=== PATIENT | female | born 2000 | race Caucasian/White ===

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

== ENCOUNTER → 2021-03-01 | Outpatient (CLI) | payer BC ==
--- NOTE | 2021-03-01 13:35 | US ---
EXAMINATION TYPE: Transabdominal DATE OF EXAM: 03/01/2021 9:25 AM COMPARISON: NONE CLINICAL HISTORY: Z34.9 Encounter for supervision of normal pregnanc. Patient declined transvaginal u ltrasound EXAM PERFORMED: Transabdominal (TA) EXAM MEASUREMENTS: GESTATIONAL AGE / DATING Physician Established: Not yet established Dates by LMP: LMP unknown Dates by Current Scan for: (11 weeks/1 days) EDC: 09/19/2021 MATERNAL ANATOMY Uterus: 10.9 x 8.6 x 7.8 cm Right Ovary: 4.1 x 1.6 x 1.5 cm Left Ovary: Not visualized Post CDS / Adnexa: wnl Presence of free fluid: No Presence of corpus luteal cyst: No Presence of subchorionic bleed: No GESTATION / SURVEY CRL: 4.1 cm (11 weeks/1 days) Heart Rate: 153 bpm Rhythm: Normal IUP: Viable IUP Date of LMP: Unknown Beta HcG (if available): Not available at this time Viable IUP with an AMARA of 09/19/2021 by this exam. Echogenic area measuring 0.8 cm visualized within g estational sac of unknown etiology. Patient denied transvaginal ultrasound IMPRESSION: Live IUP with an AMARA of 09/19/2021 by this exam. Echogenic focus measuring 0.8 cm visualized within ge stational sac of unknown etiology.
== END | disposition home or self-care (01) ==
LOC: RADUSWWP 09:05
PROVIDERS: ATTEND Obstetrics & Gynecology
DX: Z34.91 Encounter for supervision of normal pregnancy, unspecified, first trimester (principal); Z3A.11 11 weeks gestation of pregnancy
CPT/HCPCS: 76801

== ENCOUNTER 2021-09-02 22:57 | Outpatient (CLI) | payer BC, OTHER ==
[2021-09-02] MEDS ORDERED: ACETAMINOPHEN TAB 325 MG TAB PO STA (23:31)
[2021-09-02 23:57] VITALS: BP 105/68; PULSE 93; RESP 16; TEMP 98.7
--- NOTE | 2021-09-17 11:02 | P.MSEPDOC ---
Presenting Problems - Arrival Data Date of Arrival on Unit: 09/02/21 Time of Arrival on Unit: 22:57 Mode of Transport: Ambulatory - Complaint OB-Reason for Admission/Chief Complaint: Pain Comment: lower pelvic pain, hip and back pain 8/10, and headache for the past 24 hours Medical History - Information : 1 Para: 0 Term: 0 : 0 Abortions: Spontaneous or Elective: 0 Number of Living Children: 0 - Gestational Age Gestational Age by AMARA (wks/days): 37 Weeks and 4 Days - History Complications: GBS+, Smoker Comment: smokes THC a couple days ago Review of Systems - Review of Systems Constitutional: No problems Breast: No problems ENT: No problems Cardiovascular: No problems Respiratory: No problems Gastrointestinal: No problems Genitourinary: No problems Musculoskeletal: No problems Neurological: No problems Skin: No problems Vital Signs - Temperature Temperature: 98.7 F Temperature Source: Oral - Pulse Pulse Oximetery Pulse Rate: 93 Pulse Assessment Method: Automatic Cuff - Respirations Respiratory Rate: 16 Oxygen Delivery Method: Room Air - Blood Pressure Right Arm Blood Pressure: 105/68 Blood Pressure Mean: 80 Blood Pressure Source: Automatic Cuff Medical Screen Scoring - Cervical Exam Dilation (cm): 0 Membranes: Intact - Assessment - Baby A Baseline FHR: 135 Heart Rate - NICHD Category: Category I (Normal) NST: Reactive Physician Notification - Physician Notified Physician Notified Date: 09/02/21 Physician Notified Time: 23:22 Physician: Alcira Roque New Order Received: Yes - Notification Comment Comment: orders to keep pt. for 1 hour and if mely recheck cervix, if no contractions within the hour pt. can be discharged home, pt. left AMA at 2235, Dr. Roque called and notifed. Maternal Triage Index - Maternal Triage Index Presenting for scheduled procedure w/no complaint: No - Stat/Priority 1 Stat Priority 1: No - Urgent/Priority 2 Urgent Priority 2: No - Prompt/Priority 3 Prompt Priority 3: Yes Criteria Met for Priority 3: pt. 37/4, c/o headache for the last 24 hours, lower pelvic pain, hip and back pain 8/10. fingertip, thick and high, no contractions at this time Disposition - Disposition OB Disposition: Discharge to home Discharge Date: 09/02/21 Discharge Time: 22:35 I agree with the RN Medical Screening Exam: Yes Case reviewed; plan agreed upon as documented in EMR&OBIX.: Yes Diagnosis: head ache, pelvic pain
== END 2021-09-02 23:22 | disposition home or self-care (01) ==
LOC: FBPOP 22:57
PROVIDERS: ATTEND Obstetrics & Gynecology
DX: O26.893 Other specified pregnancy related conditions, third trimester (principal); R51.9 Headache, unspecified; R10.2 Pelvic and perineal pain; Z3A.37 37 weeks gestation of pregnancy
CPT/HCPCS: 59025; 99213

== ENCOUNTER 2021-09-15 06:15 | Inpatient (IN) | payer BC, OTHER ==
[2021-09-15] MEDS ORDERED: METHYLERGONOVINE 0.2 MG/ML 1 ML AMP IM PRN (06:27)
[2021-09-15] MEDS ORDERED: TERBUTALINE 1 MG/ML VIAL SQ PRN (06:27)
[2021-09-15] MEDS ORDERED: LIDOCAINE 1% (PF) 10 MG/ML (30 ML SDV) SQ PRN (06:27)
[2021-09-15] MEDS ORDERED: CARBOPROST TROMETHAMINE 250 MCG/ML 1 ML AMP IM PRN (06:27)
[2021-09-15] MEDS ORDERED: OXYTOCIN 10 UNIT/ML 1 ML VIAL IM PRN (06:27)
[2021-09-15] MEDS ORDERED: OXYTOCIN 30 UNITS/500 ML NS 30 UNIT in SALINE 1 500ML.BAG IV SCH (06:30)
[2021-09-15] MEDS ORDERED: PENICILLIN G POTASSIUM 5,000,000 UNIT in DEXTROSE 5% IN WATER 100 ML IVPB STA ×2 (06:47)
[2021-09-15] MEDS: LACTATED RINGERS 1,000 ML IV SCH ×4 (06:56→20:39)
[2021-09-15 07:08] LABS: Basophils % (A) 0 %; Eosinophils # (A) 0.2 k/uL (0-0.7); Eosinophils % (A) 2 %; HCT 38.3 % (34.0-46.0); Lymphocytes # (A) 1.3 k/uL (1.0-4.8); Lymphocytes % (A) 15 %; MCH 31.8 pg (25.0-35.0); MCV 93.6 fL (80.0-100.0); Mean Platelet Volume 7.4; Monocytes # (A) 0.6 k/uL (0-1.0); Monocytes % (A) 7 %; Neutrophils % (A) 73 %; Platelet Count 250 k/uL (150-450); RBC 4.09 m/uL (3.80-5.40); RDW 14.1 % (11.5-15.5); WBC 8.2 k/uL (4.0-11.0)
--- NOTE | 2021-09-15 08:08 | P.HPOB ---
History of Present Illness H&P Date: 09/15/21 Chief Complaint: Here for induction of labor for small for gestational age f etus. This is a 20-year-old white female 1 para 0 EDC 09/19/2021 at 39-2/7 weeks' gestation who presents today for induction with small for gestational age fetus noted sonographically. Fetus is been active throughout the , weekly nonstress testing has been reassuring. She denies fluid leakage or vaginal bleeding this morning. 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 Past surgical history is negative. Social history significant for single teen , father of the baby present and involved. She has a history of marijuana use as well as beeping, quit both with . Current medications vitamins daily, Valtrex 500 mg daily, baby aspirin daily. ALLERGIES none known. history significant for positive group B strep cultures, blood type A-, rubella status nonimmune. VDRL testing, hepatitis B surface antigen, HIV testing, urine culture all negative. Initial urine drug screen was positive for marijuana, repeat was negative. One-hour Glucola 122. On exam patient is 5 foot 8 inches, 164 pounds, blood pressure 118/77, vital signs are stable and she is afebrile. The general physical exam is within normal limits. Cervix is 1 cm dilated, 60% effaced, -2 station, soft, anterior, vertex. Artificial amniorrhexis reveals clear fluid. heart tones are consistent with reactive NST. Impression: 39-2/7 weeks intrauterine , all signs reassuring, positive group B strep cultures, small for gestational age fetus noted sonographically. No HSV lesions or prodrome today. Plan oxytocin per hospital protocol. Penicillin G per hospital protocol. Close maternal and surveillance. Analgesic options reviewed with the patient. Anticipate normal spontaneous vaginal delivery. Review of Systems Constitutional: Reports as per HPI Past Medical History Past Medical History: No Reported History History of Any Multi-Drug Resistant Organisms: None Reported Past Surgical History: No Surgical Hx Reported Past Psychological History: No Psychological Hx Reported Smoking Status: Vaper Past Alcohol Use History: None Reported Past Drug Use History: None Reported Additional Drug Use History / Comment(s): THC use during pregnacy used last month Medications and Allergies Home Medications Medication Instructions Recorded Confirmed Type Pnv No.95/Ferrous Fum/Folic AC 1 tab PO DAILY 09/02/21 09/15/21 History [ Multivitamin Tablet] valACYclovir HCL [Valtrex] 1 tab PO DAILY 09/02/21 09/15/21 History Allergies Allergy/AdvReac Type Severity Reaction Status Date / Time No Known Allergies Allergy Verified 07/30/20 16:58 Exam Vital Signs Temp Pulse Resp BP Pulse Ox 09/15/21 06:26 96.4 F L 107 H 16 118/77 99 Intake and Output 09/14/21 09/15/21 09/15/21 22:59 06:59 14:59 Other: Weight 74.389 kg See dictation under HPI please Results Result Diagrams: 09/15/21 06:45 Assessment and Plan Assessment: 39-2/7 weeks intrauterine , small for gestational age fetus noted sonographically. All signs otherwise reassuring. Plan: Oxytocin per hospital protocol. Penicillin G per hospital protocol. Close maternal and surveillance. Anticipate normal spontaneous vaginal delivery. Time with Patient: Less than 30
[2021-09-15] MEDS ORDERED: ROPIVACAINE 5MG/ML 20ML VIAL ONE (11:03)
[2021-09-15] MEDS ORDERED: fentaNYL (PF) 50 MCG/ML 5 ML AMP ONE (11:03)
[2021-09-15] MEDS ORDERED: SODIUM CHLORIDE 0.9% 100 ML BAG ONE (11:03)
[2021-09-15] MEDS: PENICILLIN G POTASSIUM 2,500,000 UNIT in DEXTROSE 5% IN WATER 100 ML IVPB SCH ×4 (11:34→17:12)
[2021-09-15] MEDS ORDERED: OXYTOCIN 30 UNITS/500 ML NS BAG IV ONE (15:06)
[2021-09-15] MEDS ORDERED: ONDANSETRON 4 MG/2 ML VIAL ONE (15:06)
[2021-09-15] MEDS ORDERED: KETOROLAC 15 MG/ML 1 ML VIAL ONE (15:06)
[2021-09-15] MEDS ORDERED: MORPHINE SULFATE (PF) 0.3 MG/0.3 ML SYR ONE (15:06)
[2021-09-15] MEDS ORDERED: ONDANSETRON 4 MG/2 ML VIAL IVP PRN ×2 (15:40→15:54)
[2021-09-15] MEDS ORDERED: diphenhydrAMINE 50 MG/ML 1 ML VIAL IVP PRN ×3 (15:40→15:54)
[2021-09-15] MEDS ORDERED: NALOXONE 0.4 MG/ML 1 ML VIAL IV PRN ×2 (15:40→15:54)
[2021-09-15] MEDS ORDERED: MORPHINE SULFATE 2 MG/ML SYRINGE IVP PRN (15:40)
[2021-09-15] MEDS ORDERED: NALBUPHINE 10 MG/ML (1 ML AMP) IV PRN (15:40)
[2021-09-15] MEDS ORDERED: SIMETHICONE 80 MG CHEWABLE PO PRN (15:54)
[2021-09-15] MEDS ORDERED: METOCLOPRAMIDE 5 MG/ML 2 ML VIAL IVP PRN (15:54)
[2021-09-15] MEDS ORDERED: diphenhydrAMINE 50 MG CAP PO PRN (15:54)
[2021-09-15] MEDS ORDERED: ZOLPIDEM 5 MG TAB PO PRN (15:54)
[2021-09-15] MEDS ORDERED: MEASLES-MUMPS-RUBELLA VACC/PF 12,500 UNIT/0.5 ML VIAL SQ ONE (15:54)
[2021-09-15] MEDS ORDERED: diphenhydrAMINE 25 MG CAP PO PRN (15:54)
--- NOTE | 2021-09-15 15:54 | P.OP ---
Date of Procedure: 09/15/21 Preoperative Diagnosis: 39-2/7 weeks intrauterine , asymmetric SGA, compound presentation 8 cm dilatation with hand presenting at 3:00. Postoperative Diagnosis: Same, liveborn male infant, normal-appearing placenta Procedure(s) Performed: Primary low transverse section Anesthesia: epidural Surgeon: Manju Weems Animal Chiropractor #1: rTav Hawk Estimated Blood Loss (ml): 400 IV fluids (ml): 500 Urine output (ml): 250 Pathology: other (Placenta) Condition: stable Disposition: PACU Operative Findings: Liveborn male , Apgars 8 and 9 at one and 5 minutes. Normal-appearing tubes and ovaries bilaterally. 6 lbs. 6 oz. or 2890 g weight. Description of Procedure: On vaginal examination, the hand was noted at 3:00, full hand to the wrist, with fingers. Decision was made to proceed with primary low transverse section for compound presentation. The epidural was "topped off". Penicillin G had been given 2 doses, Ancef 2 g also given. Patient is brought back to the operative suite. She's placed in the dorsal supine position after Madrid catheter is placed, vaginal prep is done. The appropriate timeout is performed to assure proper patient and procedural identification. The abdomen is prepped and draped in the usual sterile fashion. The analgesia is checked and noted to be adequate. A low transverse skin incision is made in this is carried down through the subcutaneous tissue which is approximately 2 cm deep. Fascia is isolated, scored, extended bilaterally with curved Linton scissors. Peritoneum is next identified and incised, there is no bowel or bladder involvement. The bladder blade is placed over the dome of the bladder and at all times the bladder is Well from the operative field to avoid bladder and/or ureteral injury. A low transverse uterine incision is made in this is carried down through the myometrium. It is extended bluntly with index fingers. The 's head is delivered occiput anterior, there is no nuchal cord noted. The oropharynx, nasopharynx, and external nares were all bulb suctioned carefully. The patient is officially delivered a liveborn male infant at 1517 hrs. Umbilical cord is doubly clamped and ligated, he is handed to waiting nurses for evaluation where scores of 8 and 9 at one and 5 minutes respectively are given. Placenta is delivered spontaneously, it is inspected and noted to be intact with trivascular cord at 1518 hrs. It is sent to pathology for evaluation for small for gestational age fetus. Uterus is then externalized and massaged. Ancef was given. Uterus is swept clean with a sterile sponge to avoid any retained products of conception. Uterus is closed in a two-step fashion, first layer running locking with 0 Vicryl. Second layer imbricated with 0 Vicryl. Excellent reapproximation and hemostasis. Bilateral tubes and ovaries appear normal. Abdomen is suctioned behind the uterus with a suction on guard. Uterus is gently placed back into the abdominal cavity. All arceo are noted to be hemostatically intact. Peritoneum is allowed to close by secondary intention. Fascia is closed in a running stitch of 0 Vicryl with over ligation in the midline. Subcutaneous tissue is irrigated, inspected, clean and dry. It is reapproximated with 2-0 Vicryl in a running fashion. 4-0 undyed Monocryl is used for final skin closure in a subcuticular manner. Steri-Strips and Mastisol are applied to the wound. Patient is brought back to the recovery room in very good condition with stable vital signs including a pulse of 88, 100% O2 saturation, blood pressure 102/48. All sponge needle and enhancement counts are correct. Patient is requesting circumcision for her son. Estimated blood loss
[2021-09-15] MEDS: ACETAMINOPHEN TAB 500 MG TAB PO SCH (18:50)
[2021-09-15] MEDS: SENNOSIDES-DOCUSATE SODIUM 1 EACH TAB PO SCH (20:32)
[2021-09-15] MEDS: KETOROLAC 30 MG/ML 1 ML VIAL IVP PRN (22:03)
[2021-09-15] MEDS: IBUPROFEN 600 MG TAB PO SCH (22:10)
[2021-09-16] MEDS: LACTATED RINGERS 1,000 ML IV SCH ×4 (01:23→19:34)
[2021-09-16] MEDS: ACETAMINOPHEN TAB 500 MG TAB PO SCH ×4 (01:23→22:06)
[2021-09-16] MEDS: KETOROLAC 30 MG/ML 1 ML VIAL IVP PRN ×2 (04:03→11:44)
[2021-09-16] MEDS: IBUPROFEN 600 MG TAB PO SCH ×3 (06:58→19:35)
[2021-09-16 07:51] LABS: Basophils % (A) 0 %; Eosinophils # (A) 0.2 k/uL (0-0.7); Eosinophils % (A) 2 %; HGB 11.5 gm/dL (11.4-16.0); Lymphocytes % (A) 11 %; MCH 32.4 pg (25.0-35.0); MCHC 33.9 g/dL (31.0-37.0); MCV 95.3 fL (80.0-100.0); Mean Platelet Volume 7.6; Monocytes # (A) 0.7 k/uL (0-1.0); Monocytes % (A) 8 %; Neutrophils # (A) 7.1 k/uL (1.3-7.7); Neutrophils % (A) 77 %; Platelet Count 195 k/uL (150-450); RBC 3.56 m/uL (3.80-5.40); RDW 13.8 % (11.5-15.5); WBC 9.2 k/uL (4.0-11.0)
[2021-09-16] MEDS: SENNOSIDES-DOCUSATE SODIUM 1 EACH TAB PO SCH ×3 (08:03→22:09)
--- NOTE | 2021-09-16 08:04 | P.PN ---
Subjective Progress Note Date: 09/16/21 Principal diagnosis: Postoperative day #1 Slept well. Minimal lochia rubra. Tired, otherwise no complaints. Objective - Vital Signs Vital signs: Vital Signs Temp 97.8 F 09/16/21 04:00 Pulse 69 09/16/21 04:00 Resp 17 09/16/21 04:00 BP 104/70 09/16/21 04:00 Pulse Ox 98 09/16/21 04:00 Intake & Output 09/15/21 09/16/21 09/16/21 18:59 06:59 18:59 Output Total 400 1200 Balance -400 -1200 Output: Urine 1200 Estimated Blood Loss 400 Other: Voiding Method Indwelling Catheter # Voids 3 1 - Constitutional General appearance: Present: average body habitus, cooperative - EENT Eyes: Present: PERRLA ENT: Present: hearing grossly normal - Neck Neck: Present: normal ROM - Respiratory Respiratory: bilateral: CTA - Cardiovascular Rhythm: regular - Gastrointestinal General gastrointestinal: Present: normal bowel sounds - Integumentary Integumentary: Present: normal - Neurologic Neurologic: Present: CNII-XII intact - Musculoskeletal Musculoskeletal: Present: gait normal, strength equal bilaterally - Psychiatric Psychiatric: Present: A&O x's 3, appropriate affect, intact judgment & insight - Labs CBC & Chem 7: 09/16/21 07:33 Labs: Abnormal Lab Results - Last 24 Hours (Table) 09/16/21 Range/Units 07:33 RBC 3.56 L (3.80-5.40) m/uL Assessment and Plan Assessment: Doing well first postoperative day Plan: Circumcision now. Continue postoperative care. Shower, advanced diet. Likely discharge home tomorrow. Time with Patient: Less than 30
[2021-09-16 09:04] VITALS: RESP 16
--- NOTE | 2021-09-16 10:44 | P.PN ---
Progress Note - Text Date: 09/16/2021 Time: 07:13 The patient is status post section Vital signs stable VAS: 0-10 Patient has no complaints of pain. The patient incurred some minimal itching yesterday, this itching is now subsiding. Pain meds to be managed by service.
[2021-09-16] MEDS: HYDROcodone/APAP 5-325MG 1 EACH TAB PO PRN ×2 (14:43→22:02)
[2021-09-17] MEDS: IBUPROFEN 600 MG TAB PO SCH (01:19)
[2021-09-17] MEDS: ACETAMINOPHEN TAB 500 MG TAB PO SCH (04:19)
[2021-09-17] MEDS: HYDROcodone/APAP 5-325MG 1 EACH TAB PO PRN (07:35)
[2021-09-17] MEDS: SENNOSIDES-DOCUSATE SODIUM 1 EACH TAB PO SCH (07:36)
[2021-09-17 07:52] VITALS: BP 112/80; PULSE 100; TEMP 97.7
--- NOTE | 2021-09-17 10:59 | P.DS ---
Providers Date of admission: 09/15/21 06:19 Expected date of discharge: 09/17/21 Attending physician: Manju Weems Primary care physician: Stated None - Discharge Diagnosis(es) (1) Prior complicated by SGA (small for gestational age), antepartum Current Visit: Yes Status: Acute (2) Term Current Visit: Yes Status: Acute (3) Compound presentation of fetus Current Visit: Yes Status: Acute (4) Positive GBS test Current Visit: Yes Status: Acute (5) S/P section Current Visit: Yes Status: Acute Hospital Course: This is a 20-year-old 1 now para 1 woman who is admitted at 39-2/7 weeks' gestation for induction of labor secondary to sonographic findings of small for gestational age infant. She had reassuring testing. Following admission she received group B strep prophylactic antibiotics. She underwent artificial rupture of membranes and received Pitocin. She received an epidural anesthetic in active labor. She was found in active labor to have prolapse of the hand. She therefore underwent primary low transverse section secondary to compound presentation. Findings at the time of surgery were significant for a liveborn male weighing 6 lbs. 6 oz. with Apgars of 8 at 1 minute and 9 at 5 minutes. The patient's postoperative course was unremarkable. By postoperative day #1 she was able to ambulate and void without difficulty. Her postoperative hemoglobin and vital signs were stable. By postoperative day #2 she continued to do well. Her pain was controlled with oral pain medications. Her incision appeared well healing. She had decreasing lochia. She was discharged home with routine instructions for postoperative care and follow-up. Procedures: Primary low transverse section Patient Condition at Discharge: Good Plan - Discharge Summary New Discharge Prescriptions: New Ibuprofen [Motrin] 600 mg PO Q6H tab Sennosides-Docusate Sodium [Senokot-S] 2 each PO BID@0800,2000 tab HYDROcodone/APAP 5-325MG [Llano 5-325] 1 each PO Q6HR PRN #12 tab PRN Reason: Pain No Action valACYclovir HCL [Valtrex] 1 tab PO DAILY Pnv No.95/Ferrous Fum/Folic AC [ Multivitamin Tablet] 1 tab PO DAILY Discharge Medication List Pnv No.95/Ferrous Fum/Folic AC [ Multivitamin Tablet] 1 tab PO DAILY 09/02/21 [History] valACYclovir HCL [Valtrex] 1 tab PO DAILY 09/02/21 [History] HYDROcodone/APAP 5-325MG [Llano 5-325] 1 each PO Q6HR PRN #12 tab 09/17/21 [Rx] Ibuprofen [Motrin] 600 mg PO Q6H tab 09/17/21 [Rx] Sennosides-Docusate Sodium [Senokot-S] 2 each PO BID@0800,2000 tab 09/17/21 [Rx] Follow up Appointment(s)/Referral(s): Manju Weems MD [STAFF PHYSICIAN] - 2 Weeks Activity/Diet/Wound Care/Special Instructions: Follow-up in 2 weeks after surgery in the office. Call the office with any concerning signs or symptoms including fever greater than 101, severe abdominal pain, heavy vaginal bleeding, signs of wound infection, increased swelling or redness of the lower extremities, signs of depression. No driving for 2 weeks after surgery. No heavy lifting or vigorous activity until reevaluated in the office. No intercourse for 6 weeks after delivery. Discharge Disposition: HOME SELF-CARE
== END 2021-09-17 12:00 | disposition home or self-care (01) | DRG 788 ==
LOC: 4FBP 06:19
PROVIDERS: ADMIT Obstetrics & Gynecology; ATTEND Obstetrics & Gynecology
PROC: 10907ZC Drainage of Amniotic Fluid, Therapeutic from Products of Conception, Via Natural or Artificial Opening (ICD-10-PCS; 2021-09-15)
PROC: 3E033VJ Introduction of Other Hormone into Peripheral Vein, Percutaneous Approach (ICD-10-PCS; 2021-09-15)
PROC: 4A0HXCZ Measurement of Products of Conception, Cardiac Rate, External Approach (ICD-10-PCS; 2021-09-15)
PROC: 10D00Z1 Extraction of Products of Conception, Low, Open Approach (ICD-10-PCS; principal; 2021-09-15 15:33)
DX: O32.6XX0 Maternal care for compound presentation, not applicable or unspecified (principal); O36.5930 Maternal care for other known or suspected poor fetal growth, third trimester, not applicable or unspecified; O99.824 Streptococcus B carrier state complicating childbirth; Z37.0 Single live birth; Z3A.39 39 weeks gestation of pregnancy; Z79.82 Long term (current) use of aspirin; O99.73 Diseases of the skin and subcutaneous tissue complicating the puerperium; L29.9 Pruritus, unspecified
CPT/HCPCS: 85025; 86850; 86900; 86901

== ENCOUNTER → 2024-03-21 | Outpatient (CLI) | payer BC ==
--- NOTE | 2024-03-21 11:13 | US ---
EXAMINATION TYPE: US transvaginal DATE OF EXAM: 03/21/2024 COMPARISON: NONE CLINICAL INDICATION: Female, 23 years old with history of N92.0 EXCESSIVE MENSTRUATION; Heavy bleedin g. TECHNIQUE: Transvaginal (TV EXAM MEASUREMENTS: Uterus: 7.4 x 4.3 x 5.3 cm Endometrial Stripe: 1.1 cm Right Ovary: 3.7 x 2.9 x 2.9 cm Left Ovary: 2.3 x 3.5 x 3.1 cm 1. Uterus: Retroverted wnl 2. Endometrium: wnl 3. Right Ovary: Anechoic area seen 2.1 x 2.1 x 1.8 cm. 4. Left Ovary: 1.4 x 1.7 x 1.7 cm 5. Bilateral Adnexa: wnl 6. Posterior cul-de-sac: wnl Unremarkable retroverted uterus. Endometrium is within normal limits. Right ovarian dominant follicle . Left ovary complex 1.7 cm cyst. No internal color flow. No free fluid. IMPRESSION: Left ovarian complex 1.7 cm cyst which may represent a hemorrhagic cyst versus endometrioma. Follow-u p pelvic ultrasound in 6-12 weeks is recommended.
== END | disposition home or self-care (01) ==
LOC: RADUSWWP 10:24
PROVIDERS: ATTEND Family Medicine
DX: N83.292 Other ovarian cyst, left side (principal); N92.0 Excessive and frequent menstruation with regular cycle
CPT/HCPCS: 76830

== ENCOUNTER → 2024-05-08 | Outpatient (CLI) | payer BC ==
--- NOTE | 2024-05-08 13:26 | US ---
EXAMINATION TYPE: US transvaginal DATE OF EXAM: 05/08/2024 COMPARISON: US 03/21/24 CLINICAL INDICATION: Female, 23 years old with history of N92.0 EXCESSIVE AND FREQUENT MENSTRUATION W ITH REG; follow up from previous ultrasound, irregular menses TECHNIQUE: Transvaginal (TV) Date of LMP: 04/30/2024, EXAM MEASUREMENTS: Uterus: 7.2 x 5.0 x 4.1 cm Endometrial Stripe: 0.4 cm Right Ovary: 3.0 x 1.7 x 1.5 cm Left Ovary: 3.0 x 1.7 x 1.7 cm 1. Uterus: Retroverted wnl 2. Endometrium: wnl 3. Right Ovary: follicles seen 4. Left Ovary: complex area with peripheral vascular flow seen, corpus luteum? = 1.3 x 1.1 x 1.0 cm 5. Bilateral Adnexa: wnl 6. Posterior cul-de-sac: no free fluid IMPRESSION: 1. No evidence for acute process. 2. Endometrium within normal limits for thickness. [facility], , 05/08/2024 1:24 PM
== END | disposition home or self-care (01) ==
LOC: RADUSWWP 12:27
PROVIDERS: ATTEND Family Medicine
DX: N92.0 Excessive and frequent menstruation with regular cycle (principal)
CPT/HCPCS: 76830